=== PATIENT | male | born 1970 | race African-American/Black ===

== ENCOUNTER 2017-04-29 18:18 | Emergency (ER) | payer OTHER ==
[~2017-04-29] VITALS: Ht 180.3 cm; Wt 72.6 kg
[~2017-04-29 18:18] MED LIST: EFAV1TAB PO
[2017-04-29 19:32] VITALS: BP 124/75
== END 2017-04-29 20:49 | disposition home or self-care (01) ==
LOC: ER 18:22
DX: J06.9 Acute upper respiratory infection, unspecified (principal)
CPT/HCPCS: 71010; 99283; A4606; Z7610